=== PATIENT | female | born 1945 | race Caucasian/White ===

== ENCOUNTER 2021-06-12 23:41 | Inpatient (IN) | payer MEDICARE ==
[2021-06-12] MEDS ORDERED: ACETAMINOPHEN TAB 325 MG TAB PO STA (23:52)
[2021-06-13 00:24] LABS: Anisocytosis Slight; Basophils % (A) 0 %; Eosinophils # (A) 0.1 k/uL (0-0.7); Eosinophils % (A) 1 %; HCT 33.6 % (34.0-46.0); HGB 10.9 gm/dL (11.4-16.0); Lymphocytes # (A) 0.4 k/uL (1.0-4.8); Lymphocytes % (A) 4 %; MCH 30.4 pg (25.0-35.0); MCHC 32.3 g/dL (31.0-37.0); MCV 94.1 fL (80.0-100.0); Mean Platelet Volume 8.3; Monocytes # (A) 0.4 k/uL (0-1.0); Monocytes % (A) 3 %; Neutrophils # (A) 11.5 k/uL (1.3-7.7); Neutrophils % (A) 92 %; Platelet Count 181 k/uL (150-450); RBC 3.57 m/uL (3.80-5.40); RDW 16.6 % (11.5-15.5); WBC 12.5 k/uL (3.8-10.6)
[2021-06-13 00:27] LABS: Albumin 2.5 g/dL (3.5-5.0); Calcium 8.4 mg/dL (8.4-10.2); Total Bilirubin 0.4 mg/dL (0.2-1.3); Total Protein 5.4 g/dL (6.3-8.2)
[2021-06-13 00:31] LABS: INR 4.2 (<1.2); Partial Thromboplastin Time 31.4 sec (22.0-30.0); Prothrombin Time 40.7 sec (9.0-12.0)
--- NOTE | 2021-06-13 00:31 | XR ---
EXAMINATION TYPE: XR chest 1V portable DATE OF EXAM: 06/13/2021 COMPARISON: NONE HISTORY: Fever TECHNIQUE: Single view FINDINGS: There is coarse interstitial density in both lungs. There is no pleural effusion. Heart is borderline enlarged. Bony thorax is intact. IMPRESSION: Pulmonary interstitial infiltrates could relate to pulmonary fibrosis. Recommend comparis on with an old exam. No heart failure seen. Acute interstitial pneumonia not excluded.
[2021-06-13 01:47] LABS: Appearance,Urine Clear (Clear); Bacteria,Urine Rare /hpf; Bilirubin,Urine Negative (Negative); Blood,Urine Negative (Negative); Color,Urine Yellow; Glucose,Urine (UA) Negative (Negative); Hyaline Casts,Urine 12 /lpf (0-2); Ketones,Urine Negative (Negative); Leukocyte Esterase,Urine Trace (Negative); Mucus,Urine Occasional /hpf; Nitrite,Urine Negative (Negative); PH, Urine 5.5 (5.0-8.0); Protein,Urine Trace (Negative); RBC,Urine 3 /hpf (0-5); Squamous Epithelial Cell,Urine 1 /hpf (0-4); Urobilinogen,Urine <2.0 mg/dL (<2.0); WBC,Urine 4 /hpf (0-5)
[2021-06-13] MEDS ORDERED: SODIUM CHLORIDE 0.9% 500 ML 500 ML IV STA (03:14)
[2021-06-13] MEDS ORDERED: SODIUM CHLORIDE 0.9% 1,000 ML IV STA (03:14)
[2021-06-13] MEDS ORDERED: SODIUM CHLORIDE 0.9% 1,000 ML IV ONE (03:14)
--- NOTE | 2021-06-13 04:44 | ED ---
Altered Mental Status HPI - General Chief Complaint: Altered Mental Status Stated Complaint: Altered Mental Status Time Seen by Provider: 06/12/21 23:45 Source: EMS Mode of arrival: EMS Limitations: altered mental status - History of Present Illness Initial Comments: This patient is a 75-year-old woman who was sent from retirement to be evaluated for reportedly having altered mental status. I was reported that the patient was confused and disoriented. She was also reportedly appearing to be short of breath at the retirement. She reportedly had been diagnosed with codeine 19 infection last month. Patient reportedly had decreased oxygen satu rations and was borderline hypotensive prior to being transferred to the department here. The patient denies chest pain. MD Complaint: altered mental status -: hour(s) Consistency of Symptoms: unknown Associated Symptoms: shortness of breath - Related Data Home Medications Medication Instructions Recorded Confirmed Acetaminophen [Tylenol Arthritis] 650 mg PO Q6H PRN 06/13/21 06/13/21 Aspirin 81 mg PO DAILY 06/13/21 06/13/21 Atorvastatin [Lipitor] 20 mg PO HS 06/13/21 06/13/21 Calcium Carb-Vit D 500Mg-5Mcg 1 tab PO DAILY 06/13/21 06/13/21 [Oscal 500+D 5 Mcg (200 Iu)] Cyanocobalamin (Vitamin B-12) 1,000 mcg PO DAILY 06/13/21 06/13/21 [Vitamin B-12] Ferrous Sulfate [Iron (65 MG 325 mg PO DAILY 06/13/21 06/13/21 Elemental)] Folic Acid 1 mg PO DAILY 06/13/21 06/13/21 Levothyroxine Sodium [Synthroid] 50 mcg PO DAILY@0600 06/13/21 06/13/21 Lisinopril [Zestril] 10 mg PO DAILY 06/13/21 06/13/21 Miconazole 2% Cream [Monistat-Derm] 1 applic TOPICAL BID 06/13/21 06/13/21 Polyethylene Glycol 3350 [Miralax] 17 gm PO DAILY 06/13/21 06/13/21 metHOTREXate sodium [Methotrexate] 2.5 mg PO FR 06/13/21 06/13/21 Previous Rx's Medication Instructions Recorded Cefuroxime Axetil [Ceftin] 500 mg PO BID #10 tab 06/14/21 Diclofenac Sodium Gel [Voltaren 2 gm TOPICAL QID gm 06/14/21 Gel] Gabapentin [Neurontin] 400 mg PO TID@0600,1400,2200 #12 06/14/21 cap Naproxen [Naprosyn] 250 mg PO TID #21 tab 06/14/21 Warfarin Sodium 3 mg PO HS #0 06/14/21 Allergies Allergy/AdvReac Type Severity Reaction Status Date / Time morphine AdvReac Vomiting Verified 06/13/21 06:49 Review of Systems ROS Statement: Those systems with pertinent positive or pertinent negative responses have been documented in the HPI. ROS Other: All systems not noted in ROS Statement are negative. Limitations: ROS unobtainable due to patients medical condition Respiratory: Reports: cough, dyspnea Cardiovascular: Denies: chest pain Gastrointestinal: Denies: abdominal pain Neurological: Denies: headache Past Medical History Past Medical History: Atrial Fibrillation, Blood Disorder, GERD/Reflux, Hypertension, Rheumatoid Arthritis (RA), Syncope, Thyroid Disorder Additional Past Medical History / Comment(s): hypothyroid, anemia History of Any Multi-Drug Resistant Organisms: ESBL Date of last positivie culture/infection: unk Past Psychological History: No Psychological Hx Reported Smoking Status: Never smoker Past Alcohol Use History: None Reported Past Drug Use History: None Reported General Exam Limitations: no limitations General appearance: alert, in no apparent distress Head exam: Present: atraumatic, normocephalic Eye exam: Present: normal appearance, PERRL, EOMI. Absent: scleral icterus, conjunctival injection ENT exam: Present: mucous membranes dry Neck exam: Present: normal inspection, full ROM. Absent: tenderness Respiratory exam: Present: rhonchi. Absent: respiratory distress, wheezes, rales, stridor, accessory muscle use, decreased breath sounds, prolonged expiratory Cardiovascular Exam: Present: regular rate, normal rhythm, systolic murmur. Absent: diastolic murmur, rubs, gallop GI/Abdominal exam: Present: soft. Absent: distended, tenderness, guarding, rebound, rigid, mass Extremities exam: Present: normal inspection, normal capillary refill. Absent: pedal edema, calf tenderness Back exam: Present: normal inspection Neurological exam: Present: alert, CN II-XII intact. Absent: oriented X3 (Patient is oriented to person and recognizes she is at a hospital, cannot state the date.), motor sensory deficit Skin exam: Present: warm, dry, intact, normal color. Absent: rash Course Vital Signs 06/12/21 06/13/21 06/13/21 23:42 00:15 01:00 Temperature 100.6 F H Pulse Rate 76 71 66 Respiratory 20 20 20 Rate Blood Pressure 107/55 102/53 80/46 O2 Sat by Pulse 94 L 98 98 Oximetry 06/13/21 06/13/21 06/13/21 02:30 04:00 06:15 Temperature 99.6 F Pulse Rate 60 66 64 Respiratory 18 18 16 Rate Blood Pressure 90/46 99/46 102/58 O2 Sat by Pulse 98 98 97 Oximetry 06/13/21 06/13/21 08:37 08:55 Temperature 98.6 F Pulse Rate 60 Respiratory 16 Rate Blood Pressure 100/54 O2 Sat by Pulse 100 Oximetry Procedures - Sepsis Sepsis Focused Exam #2 Sepsis Focused Exam Date: 06/13/21 Sepsis Focused Exam Time: 04:30 Sepsis Focused Exam Complete: Yes Vital Signs & RN Notes Reviewed: Yes Capillary Refill: < 2 Seconds: Fingers Peripheral Pulses: Normal: Radial (R) Skin Color: Normal for Patient Respiratory Exam: rhonchi Cardiovascular Exam: regular rate, normal rhythm, normal heart sounds Medical Decision Making - Medical Decision Making Patient 75-year-old woman sent from retirement for altered mental status. Patient does have sepsis criteria here. She is started on antibiotics and IV fluids. Patient hypotensive on arrival is responding to IV fluids here. She does appear to be mildly delirious but otherwise stable. We'll admit pending culture results for further fluids and antibiotics - Lab Data Result diagrams: 06/14/21 07:09 06/14/21 07:09 Lab Results 06/12/21 06/12/21 06/12/21 Range/Units 23:56 23:56 23:56 WBC 12.5 H (3.8-10.6) k/uL RBC 3.57 L (3.80-5.40) m/uL Hgb 10.9 L (11.4-16.0) gm/dL Hct 33.6 L (34.0-46.0) % MCV 94.1 (80.0-100.0) fL MCH 30.4 (25.0-35.0) pg MCHC 32.3 (31.0-37.0) g/dL RDW 16.6 H (11.5-15.5) % Plt Count 181 (150-450) k/uL MPV 8.3 Neutrophils % 92 % Lymphocytes % 4 % Monocytes % 3 % Eosinophils % 1 % Basophils % 0 % Neutrophils # 11.5 H (1.3-7.7) k/uL Lymphocytes # 0.4 L (1.0-4.8) k/uL Monocytes # 0.4 (0-1.0) k/uL Eosinophils # 0.1 (0-0.7) k/uL Basophils # 0.0 (0-0.2) k/uL Anisocytosis Slight PT 40.7 H (9.0-12.0) sec INR 4.2 H (<1.2) APTT 31.4 H (22.0-30.0) sec Sodium (137-145) mmol/L Potassium (3.5-5.1) mmol/L Chloride (98-107) mmol/L Carbon Dioxide (22-30) mmol/L Anion Gap mmol/L BUN (7-17) mg/dL Creatinine (0.52-1.04) mg/dL Est GFR (CKD-EPI)AfAm (>60 ml/min/1.73 sqM) Est GFR (CKD-EPI)NonAf (>60 ml/min/1.73 sqM) Glucose (74-99) mg/dL Plasma Lactic Acid Sterling (0.7-2.0) mmol/L Calcium (8.4-10.2) mg/dL Total Bilirubin (0.2-1.3) mg/dL AST (14-36) U/L ALT (4-34) U/L Alkaline Phosphatase (38-126) U/L Troponin I (0.000-0.034) ng/mL Total Protein (6.3-8.2) g/dL Albumin (3.5-5.0) g/dL Urine Color Yellow Urine Appearance Clear (Clear) Urine pH 5.5 (5.0-8.0) Ur Specific Dale 1.020 (1.001-1.035) Urine Protein Trace H (Negative) Urine Glucose (UA) Negative (Negative) Urine Ketones Negative (Negative) Urine Blood Negative (Negative) Urine Nitrite Negative (Negative) Urine Bilirubin Negative (Negative) Urine Urobilinogen <2.0 (<2.0) mg/dL Ur Leukocyte Esterase Trace H (Negative) Urine RBC 3 (0-5) /hpf Urine WBC 4 (0-5) /hpf Ur Squamous Epith Cells 1 (0-4) /hpf Urine Bacteria Rare H (None) /hpf Hyaline Casts 12 H (0-2) /lpf Urine Mucus Occasional H (None) /hpf Coronavirus (PCR) (Not Detectd) 06/12/21 06/12/21 06/12/21 Range/Units 23:56 23:56 23:56 WBC (3.8-10.6) k/uL RBC (3.80-5.40) m/uL Hgb (11.4-16.0) gm/dL Hct (34.0-46.0) % MCV (80.0-100.0) fL MCH (25.0-35.0) pg MCHC (31.0-37.0) g/dL RDW (11.5-15.5) % Plt Count (150-450) k/uL MPV Neutrophils % % Lymphocytes % % Monocytes % % Eosinophils % % Basophils % % Neutrophils # (1.3-7.7) k/uL Lymphocytes # (1.0-4.8) k/uL Monocytes # (0-1.0) k/uL Eosinophils # (0-0.7) k/uL Basophils # (0-0.2) k/uL Anisocytosis PT (9.0-12.0) sec INR (<1.2) APTT (22.0-30.0) sec Sodium 136 L (137-145) mmol/L Potassium 4.0 (3.5-5.1) mmol/L Chloride 107 (98-107) mmol/L Carbon Dioxide 23 (22-30) mmol/L Anion Gap 6 mmol/L BUN 32 H (7-17) mg/dL Creatinine 1.21 H (0.52-1.04) mg/dL Est GFR (CKD-EPI)AfAm 52 (>60 ml/min/1.73 sqM) Est GFR (CKD-EPI)NonAf 45 (>60 ml/min/1.73 sqM) Glucose 121 H (74-99) mg/dL Plasma Lactic Acid Sterling 2.0 (0.7-2.0) mmol/L Calcium 8.4 (8.4-10.2) mg/dL Total Bilirubin 0.4 (0.2-1.3) mg/dL AST 35 (14-36) U/L ALT 18 (4-34) U/L Alkaline Phosphatase 65 (38-126) U/L Troponin I 0.037 H* (0.000-0.034) ng/mL Total Protein 5.4 L (6.3-8.2) g/dL Albumin 2.5 L (3.5-5.0) g/dL Urine Color Urine Appearance (Clear) Urine pH (5.0-8.0) Ur Specific Dale (1.001-1.035) Urine Protein (Negative) Urine Glucose (UA) (Negative) Urine Ketones (Negative) Urine Blood (Negative) Urine Nitrite (Negative) Urine Bilirubin (Negative) Urine Urobilinogen (<2.0) mg/dL Ur Leukocyte Esterase (Negative) Urine RBC (0-5) /hpf Urine WBC (0-5) /hpf Ur Squamous Epith Cells (0-4) /hpf Urine Bacteria (None) /hpf Hyaline Casts (0-2) /lpf Urine Mucus (None) /hpf Coronavirus (PCR) (Not Detectd) 06/13/21 Range/Units 06:44 WBC (3.8-10.6) k/uL RBC (3.80-5.40) m/uL Hgb (11.4-16.0) gm/dL Hct (34.0-46.0) % MCV (80.0-100.0) fL MCH (25.0-35.0) pg MCHC (31.0-37.0) g/dL RDW (11.5-15.5) % Plt Count (150-450) k/uL MPV Neutrophils % % Lymphocytes % % Monocytes % % Eosinophils % % Basophils % % Neutrophils # (1.3-7.7) k/uL Lymphocytes # (1.0-4.8) k/uL Monocytes # (0-1.0) k/uL Eosinophils # (0-0.7) k/uL Basophils # (0-0.2) k/uL Anisocytosis PT (9.0-12.0) sec INR (<1.2) APTT (22.0-30.0) sec Sodium (137-145) mmol/L Potassium (3.5-5.1) mmol/L Chloride (98-107) mmol/L Carbon Dioxide (22-30) mmol/L Anion Gap mmol/L BUN (7-17) mg/dL Creatinine (0.52-1.04) mg/dL Est GFR (CKD-EPI)AfAm (>60 ml/min/1.73 sqM) Est GFR (CKD-EPI)NonAf (>60 ml/min/1.73 sqM) Glucose (74-99) mg/dL Plasma Lactic Acid Sterling (0.7-2.0) mmol/L Calcium (8.4-10.2) mg/dL Total Bilirubin (0.2-1.3) mg/dL AST (14-36) U/L ALT (4-34) U/L Alkaline Phosphatase (38-126) U/L Troponin I (0.000-0.034) ng/mL Total Protein (6.3-8.2) g/dL Albumin (3.5-5.0) g/dL Urine Color Urine Appearance (Clear) Urine pH (5.0-8.0) Ur Specific Dale (1.001-1.035) Urine Protein (Negative) Urine Glucose (UA) (Negative) Urine Ketones (Negative) Urine Blood (Negative) Urine Nitrite (Negative) Urine Bilirubin (Negative) Urine Urobilinogen (<2.0) mg/dL Ur Leukocyte Esterase (Negative) Urine RBC (0-5) /hpf Urine WBC (0-5) /hpf Ur Squamous Epith Cells (0-4) /hpf Urine Bacteria (None) /hpf Hyaline Casts (0-2) /lpf Urine Mucus (None) /hpf Coronavirus (PCR) Not Detected (Not Detectd) - EKG Data -: EKG Interpreted by Pr EKG shows normal: sinus rhythm (With PVCs, rate 80 bpm), axis (Normal), intervals (Normal), QRS complexes (Possible old anterior infarct.) Interpretation: nonspecific ST-T wave changes (Possible lateral ischemia.) Critical Care Time Critical Care Time: Yes (30 minutes) Disposition Clinical Impression: Sepsis, Altered mental status Disposition: ADMITTED IP TO THIS [facility] Is patient prescribed a controlled substance at d/c from ED?: No
[2021-06-13] MEDS ORDERED: HYDROmorphone 0.5 MG/0.5 ML SYRINGE IVP PRN (05:40)
[2021-06-13] MEDS ORDERED: ACETAMINOPHEN TAB 325 MG TAB PO PRN (07:16)
[2021-06-13] MEDS: FERROUS SULFATE 325 MG TAB PO SCH (08:36)
[2021-06-13] MEDS: FOLIC ACID 1 MG TAB PO SCH (08:37)
[2021-06-13] MEDS: ASPIRIN 81 MG PO SCH (08:37)
[2021-06-13] MEDS: GABAPENTIN 400 MG CAP PO SCH ×4 (08:47→23:10)
[2021-06-13] MEDS ORDERED: lisinopriL 10 MG TAB PO SCH (09:00)
[2021-06-13] MEDS ORDERED: FAMOTIDINE 20 MG/2 ML VIAL IV SCH (09:00)
[2021-06-13] MEDS: Acetaminophen-Codeine 300-30mg TAB PO PRN ×2 (11:16→18:24)
[2021-06-13 11:21] LABS: Anisocytosis Slight; Basophils % (A) 0 %; Eosinophils % (A) 0 %; HGB 10.3 gm/dL (11.4-16.0); Lymphocytes # (A) 0.8 k/uL (1.0-4.8); Lymphocytes % (A) 7 %; MCH 31.7 pg (25.0-35.0); MCHC 33.3 g/dL (31.0-37.0); MCV 95.1 fL (80.0-100.0); Mean Platelet Volume 8.9; Monocytes # (A) 0.4 k/uL (0-1.0); Monocytes % (A) 4 %; Neutrophils # (A) 10.1 k/uL (1.3-7.7); Neutrophils % (A) 88 %; Platelet Count 178 k/uL (150-450); RBC 3.26 m/uL (3.80-5.40); WBC 11.5 k/uL (3.8-10.6)
[2021-06-13 11:29] LABS: INR 4.8 (<1.2); Prothrombin Time 45.9 sec (9.0-12.0)
[2021-06-13 11:30] LABS: Calcium 8.2 mg/dL (8.4-10.2); Potassium 4.2 mmol/L (3.5-5.1)
--- NOTE | 2021-06-13 14:10 | P.CNNES ---
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 Some of the history is obtained from medical records and patient's nurse. Neurology is consulted for possible stroke. Per the patient's nurse she spoke with the patient's son stated that the patient had a stroke about a month ago according to the patient that was the a few month ago and affected the right side. She had workup over at [facility] and that it is belie lexii that was Donald Aparicio. The patient presented to our facility for short of breath at the skilled nursing facility and had decreased oxygen saturation and had a borderline hypotensive prior to being transferred to our emergency department per the ED team. Patient complained of chest pain to the emergency department. Upon seeing the patient she denies of any new weakness, numbness, any visual disturbance or difficulty swallowing. She stated that she's having diffuse pain throughout her body and she said that she has history of rheumatoid arthritis and that with flareup of her rheumatoid this happens. She said that she had rheumatoid arthritis for years. According to the patient's nurse she stated that she did not notice any confusion that the patient had or any new weakness. The nurse stated that the from her examination also the exam was limited because of the pain but the patient was a response to her appropriately. Home medication consist of Coumadin, methotrexate, aspirin 81 mg, Lipitor 20 mg a daily at bedtime, folic acid 1 mg daily, Synthroid, lisinopril, vitamin B12 at thousand micrograms daily, gabapentin 400 mg 1 tablet 3 times a day, Some of the work-up: Initial vital signs is blood pressure of 107/55, heart rate of 100.6 Fahrenheit oral, respiratory of 76, respiratory of 20, pulse ox 94% on room air. During this hospital stay the patient's blood pressure was as low as 80/46 Initial white blood cell is 12.5 thousand, mostly neutrophilic. Sodium is 136, creatinine is 1.21 and a repeat is 1.18, serum glucose is 121, AST of 35, ALT of 18, troponin is 0.037 and the repeat his 0.038. Chest x-rays reported as pulmonary and interstitial infiltrates that could relate to pulmonary fibrosis. Recommend comparison with an old exam. No heart failure seen. Acute interstitial pneumonia not excluded that. Urinalysis is the leukocyte esterase was trace and the urine bacteria was rare. Coagulation study: PT L5 40.7, INR is 4.2 and PTT of 31.4. The repeat INR is 4.8 Luo virus is nondetected Review of Systems Review of system: The 12 point system was reviewed and apparent positive and negative per HPI. Past Medical History Past Medical History: Atrial Fibrillation, Asthma, Blood Disorder, CVA/TIA, GERD/Reflux, Hypertension, Rheumatoid Arthritis (RA), Syncope, Thyroid Disorder Additional Past Medical History / Comment(s): hypothyroid, anemia, at [facility] had a "negative positive" covid test per patient, recent CVA with right side weakness History of Any Multi-Drug Resistant Organisms: ESBL Date of last positivie culture/infection: UNKOWN MDRO Source:: UNKOWN Past Surgical History: Hysterectomy Past Psychological History: No Psychological Hx Reported Smoking Status: Former smoker Past Alcohol Use History: None Reported Past Drug Use History: None Reported Medications and Allergies Home Medications Medication Instructions Recorded Confirmed Type Acetaminophen [Tylenol Arthritis] 650 mg PO Q6H PRN 06/13/21 06/13/21 History Aspirin 81 mg PO DAILY 06/13/21 06/13/21 History Atorvastatin [Lipitor] 20 mg PO HS 06/13/21 06/13/21 History Calcium Carb-Vit D 500Mg-5Mcg 1 tab PO DAILY 06/13/21 06/13/21 History [Oscal 500+D 5 Mcg (200 Iu)] Cyanocobalamin (Vitamin B-12) 1,000 mcg PO DAILY 06/13/21 06/13/21 History [Vitamin B-12] Docusate [Colace] 100 mg PO HS@199906/13/21 06/13/21 History Ferrous Sulfate [Feosol] 325 mg PO DAILY 06/13/21 06/13/21 History Folic Acid 1 mg PO DAILY 06/13/21 06/13/21 History Gabapentin [Neurontin] 400 mg PO TID@0600,1400,2200 06/13/21 06/13/21 History Levothyroxine Sodium [Synthroid] 50 mcg PO DAILY@0600 06/13/21 06/13/21 History Lisinopril [Zestril] 10 mg PO DAILY 06/13/21 06/13/21 History Miconazole 2% Cream [Monistat-Derm] 1 applic TOPICAL BID 06/13/21 06/13/21 History Polyethylene Glycol 3350 [Miralax] 17 gm PO DAILY 06/13/21 06/13/21 History Warfarin Sodium 6 mg PO HS 06/13/21 06/13/21 History metHOTREXate sodium [Methotrexate] 2.5 mg PO FR 06/13/21 06/13/21 History Allergies Allergy/AdvReac Type Severity Reaction Status Date / Time morphine AdvReac Vomiting Verified 06/13/21 06:49 Physical Examination - Vital Signs Vital Signs: Vital Signs Temp Pulse Pulse Resp BP BP Pulse Ox 06/13/21 12:00 60 87/52 06/13/21 11:10 56 L 18 109/75 97 06/13/21 10:30 55 L 79/45 06/13/21 09:35 97.9 F 60 18 88/47 98 06/13/21 08:55 98.6 F 06/13/21 08:37 60 16 100/54 100 06/13/21 06:15 64 16 102/58 97 06/13/21 04:00 66 18 99/46 98 06/13/21 02:30 99.6 F 60 18 90/46 98 06/13/21 01:00 66 20 80/46 98 06/13/21 00:15 71 20 102/53 98 06/12/21 23:42 100.6 F H 76 20 107/55 94 L Intake and Output 06/12/21 06/13/21 06/13/21 22:59 06:59 14:59 Intake Total 118 Balance 118 Intake: Oral 118 Other: Weight 64.864 kg 64.864 kg GENERAL: The patient is lying in bed and is in moderate to severe acute distres s. She had generalized pain throughout the body. CHEST: The heart rate is regular rate rhythm. No murmurs to auscultation. LUNG: Clear to auscultation bilaterally no wheezing noted throughout. Not labored breathing. ABDOMEN/GI: Bowel sounds present in all 4 quadrants. No tenderness to palpation throughout. NEUROLOGICAL: Higher mental function: The patient is awake, alert, oriented to self, place and time. Patient is following commands. No aphasia and no neglect. Cranial nerves: The pupils are round, equal and reactive to light. Visual piña are full to confrontation throughout. Extraocular movement is intact no nystagmus is noted. Facial sensation is normal to touch throughout. The facial strength is normal throughout. Hearing is mildly to moderately decreased bilaterally to hand rub. Tongue is midline and moved [id number] without any difficulty. No dysarthria is noted. Motor: Gait is deferred because of her generalized pain. The strength is limited in assessing because of her pain. She is able to bend her elbows bilaterally at bed and squeeze hand symetrically without noticeable focality as well had antigravity of both ankles. Normal bulk. Could not assess tone because of her pain. Cerebellum: Could not assess because of her pain. Sensation: Sensation is normal to touch throughout. Reflexes (right/left): Refused because of her pain. Plantars are mute bilaterally. Results - Laboratory Findings CBC and BMP: 06/13/21 10:06/13/21 10:00 Abnormal Lab Findings: Abnormal Labs 06/12/21 06/12/21 06/12/21 23:56 23:56 23:56 WBC 12.5 H RBC 3.57 L Hgb 10.9 L Hct 33.6 L RDW 16.6 H Neutrophils # 11.5 H Lymphocytes # 0.4 L PT 40.7 H INR 4.2 H APTT 31.4 H Sodium Chloride Carbon Dioxide BUN Creatinine Glucose Calcium Troponin I Total Protein Albumin Urine Protein Trace H Ur Leukocyte Esterase Trace H Urine Bacteria Rare H Hyaline Casts 12 H Urine Mucus Occasional H 06/12/21 06/12/21 06/13/21 23:56 23:56 07:30 WBC RBC Hgb Hct RDW Neutrophils # Lymphocytes # PT INR APTT Sodium 136 L Chloride Carbon Dioxide BUN 32 H Creatinine 1.21 H Glucose 121 H Calcium Troponin I 0.037 H* 0.038 H* Total Protein 5.4 L Albumin 2.5 L Urine Protein Ur Leukocyte Esterase Urine Bacteria Hyaline Casts Urine Mucus 06/13/21 06/13/21 06/13/21 10:00 10:00 10:00 WBC 11.5 H RBC 3.26 L Hgb 10.3 L Hct 31.0 L RDW 17.0 H Neutrophils # 10.1 H Lymphocytes # 0.8 L PT 45.9 H INR 4.8 H APTT Sodium Chloride 111 H Carbon Dioxide 21 L BUN 29 H Creatinine 1.18 H Glucose 132 H Calcium 8.2 L Troponin I Total Protein Albumin Urine Protein Ur Leukocyte Esterase Urine Bacteria Hyaline Casts Urine Mucus Assessment and Plan Assessment: * Transient altered mental status likely due to septic encephalopathy of unknown but possibly seems to be due to possible pneumonia (low grade fever, leukocytosis, hypotensive, hypoxia and possible changes on CXR) and small component of metabolic encephalopathy--mentation improved * Moderate to severe Generalized pain due to her Rheumatoid Arthritis flare-up. * History of stroke with residual weakness over the right side in the past one to few months ago (she was at [facility] (possibly [facility]) for her stroke). * Possible pneumonia she presented with shortness of breath and hypoxia per the ED at the outside facility) * Kidney insufficiency that is trending down and not sure if patient has acute or chronic kidney insufficiency * Atrial fibrillation on Coumadin with supratherapeutic INR currently is 4.8. * History of COVID-19 Pneumonia * Hypothyroidism * Rheumatoid arthritis Plan: * CT of the head is ordered by the primary team for suspicion of stroke but she denies any new neurological problems and is complaining of generalized pain which seems due to Rheumatoid Arthritis. Exam is limited because of her diffuse pain. * From a neurological perspective , the INR goal to be between 2-3 but will defer that management to the primary team. She is also in addition she is on aspirin 81 at her home dose. Continue Lipitor 20 mg daily at bedtime. * She is currently on folic acid 1 mg, vitamin B12 1000 g daily. * An EEG is not warranted at this time. Her transient episode of confusion seems more septic encephalopathy. * Continue neuro checks * 2-D echo was ordered by the primary team. * Patient is currently on ceftriaxone and we'll defer the antibiotic management to the primary team. * Please avoid any hypotensive episode and we'll defer the management to the primary team. * We'll defer the rheumatoid arthritis management to the primary team. * We'll defer the rest of the medical management to the primary team. * Upon discharge the patient needs to follow-up with a neurologist within 2-3 weeks as an outpatient. The plan is discussed with the patient and her nurse. Thank you for the consultation. Nicolas Stearns M.D. Neuro-hospitalist Time with Patient: Greater than 30
--- NOTE | 2021-06-13 14:42 | CT ---
EXAMINATION TYPE: CT brain wo con DATE OF EXAM: 06/13/2021 COMPARISON: None HISTORY: Complains of severe body pain. CT DLP: 1188.4 mGycm Automated exposure control for dose reduction was used. FINDINGS: Atherosclerotic change in the visualized vasculature. Moderate generalized degenerative change with a reas of abnormal attenuation in the white matter which are nonspecific but most typical of remote whi te matter ischemia. Area of abnormal density in the basal ganglia on the right suggestive of remote i nfarct. Calvarium intact. Craniocervical junction maintained. Sella turcica has a normal appearance. No midli ne shift or mass effect. No acute hemorrhage. IMPRESSION: DEGENERATIVE AND NONSPECIFIC WHITE MATTER CHANGES MOST TYPICAL REMOTE ISCHEMIA. CORRELATE WITH MRI CLINICALLY WARRANTED.
[2021-06-13] MEDS: SODIUM CHLORIDE 0.9% 1,000 ML IV SCH (14:51)
--- NOTE | 2021-06-13 17:58 | P.HPIM ---
History of Present Illness H&P Date: 06/13/21 Chief Complaint: Acute confusion This is a pleasant [address] Karthikeyan Armendariz. Chronic stable medical conditions include GERD, hypertension, rheumatoid arthritis, hypothyroid, recent stroke with some right-sided weakness. Patient's currently at [facility]. She was noted yesterday be a bit confused she was sent in here. Patient states he feels weak all over. Also joints are hurting. She says she is weak on the right side but he was more weak yesterday. No change in his speech. She is currently not working. This morning she knows where she is. Denies any respiratory or urinary symptoms. I did order a computed tomography scan of the brain and neuro consult because of the unclear history. She also states it's painful to move her limbs. Per the EMS patient was noted to be weak and lethargic and confused. Hypotensive. Review of systems: GEN.: Tired EYES: None HEENT: None NECK: None RESPIRATORY: None CARDIOVASCULAR: None GASTROINTESTINAL: None GENITOURINARY: None MUSCULOSKELETAL: Joint pains LYMPHATICS: None HEMATOLOGICAL: None PSYCHIATRY: None NEUROLOGICAL: Some right-sided weakness from recent stroke Past medical history to include: Atrial fibrillation, asthma, stroke, GERD, hypertension, rheumatoid arthritis, hypothyroid, anemia, recent stroke with right-sided weakness Social history: Currently for rehab at [facility], the smoke in the past. For about 30 years. Stopped over 20 years ago. Family history: Reviewed, noncontributory to presentation Physical examination: VITAL SIGNS: 100.6, 76, 20, 107/55, 94% room air GENERAL: BMI 25.3, reclining in bed, awake, tired. EYES: Pupils equal. Conjunctiva normal. HEENT: External appearance of nose and ears normal, oral cavity grossly normal. NECK: JVD not raised; masses not palpable. HEART: First and second heart sounds are normal; no edema. LUNGS: Respiratory rate normal; clear to auscultation. ABDOMEN: Soft, nontender, liver spleen not palpable, no masses palpable. PSYCH: Patient knows that she is in the hospital, knows the month and the year. Able to answer questions. MUSCULAR skeletal: Patient seems to have pain in different joints especially the upper extremity. Even folding her arms.l. NEUROLOGICAL: [Cranial nerves grossly intact; no facial asymmetry, some decrease in part on the right side. Unable to assess because of pain. LYMPHATICS: No lymph nodes palpable in the axilla and neck INVESTIGATIONS, reviewed in the clinical context: White count 12.5 hemoglobin 10.9 platelets 189 INR 4.2 potassium 4 when necessary 32 creatinine 1.21 Troponin I 0.037, 0.038 UA positive for trace leukoesterase, trace bacteria Coronavirus [PCR]: Not detected EKG tracing personally reviewed by me-normal sinus rhythm, PVC, some nonspecific T-wave changes Chest x-ray film personally reviewed by me-infiltrates in the upper zones. Bilateral coarse Assessment and plan: -Possible bilateral pneumonia. Cannot rule out chronic findings. Start IV ceftriaxone every 12. Check pro-calcitonin.: From gram-negative organism. -Acute delirium from pneumonia on presentation. Slowly improving -Patient does state she was more weak on the right side. Put on symptoms of fluctuating. We will do a computed tomography scan of the brain to make sure there is nothing acute. Consult neurology. -Paroxysmal atrial fibrillation, currently in sinus rhythm Coumadin -Hyperlipidemia Lipitor 20 mg daily at bedtime -Hypothyroid Synthroid 50 g daily -Essential hypertension Lisinopril 10 mg daily -Chronic arthralgia. Diagnosis unclear. Use Voltaren gel -Chronic medical debility. Patient has been nonambulatory of recent. Fall precautions -Troponin leak due to hemodynamic a mismatch. No clinical evidence of ACS IV ceftriaxone. Procalcitonin. Review home medications. Computed tomography scan brain. Neurology consult. 2-D echo. IV fluids. Repeat labs. Given the complexity and severity of patient's condition expect the patient to be in the hospital at least for 2 overnights Past Medical History Past Medical History: Atrial Fibrillation, Blood Disorder, GERD/Reflux, Hypertension, Rheumatoid Arthritis (RA), Syncope, Thyroid Disorder Additional Past Medical History / Comment(s): hypothyroid, anemia History of Any Multi-Drug Resistant Organisms: ESBL Date of last positivie culture/infection: unk Past Psychological History: No Psychological Hx Reported Smoking Status: Never smoker Past Alcohol Use History: None Reported Past Drug Use History: None Reported Medications and Allergies Home Medications Medication Instructions Recorded Confirmed Type Acetaminophen [Tylenol Arthritis] 650 mg PO Q6H PRN 06/13/21 06/13/21 History Aspirin 81 mg PO DAILY 06/13/21 06/13/21 History Atorvastatin [Lipitor] 20 mg PO HS 06/13/21 06/13/21 History Calcium Carb-Vit D 500Mg-5Mcg 1 tab PO DAILY 06/13/21 06/13/21 History [Oscal 500+D 5 Mcg (200 Iu)] Cyanocobalamin (Vitamin B-12) 1,000 mcg PO DAILY 06/13/21 06/13/21 History [Vitamin B-12] Docusate [Colace] 100 mg PO HS@199906/13/21 06/13/21 History Ferrous Sulfate [Feosol] 325 mg PO DAILY 06/13/21 06/13/21 History Folic Acid 1 mg PO DAILY 06/13/21 06/13/21 History Gabapentin [Neurontin] 400 mg PO TID@0600,1400,2200 06/13/21 06/13/21 History Levothyroxine Sodium [Synthroid] 50 mcg PO DAILY@0600 06/13/21 06/13/21 History Lisinopril [Zestril] 10 mg PO DAILY 06/13/21 06/13/21 History Miconazole 2% Cream [Monistat-Derm] 1 applic TOPICAL BID 06/13/21 06/13/21 History Polyethylene Glycol 3350 [Miralax] 17 gm PO DAILY 06/13/21 06/13/21 History Warfarin Sodium 6 mg PO HS 06/13/21 06/13/21 History metHOTREXate sodium [Methotrexate] 2.5 mg PO FR 06/13/21 06/13/21 History Allergies Allergy/AdvReac Type Severity Reaction Status Date / Time morphine AdvReac Vomiting Verified 06/13/21 06:49 Physical Exam Vitals: Vital Signs Temp Pulse Pulse Resp BP BP Pulse Ox 06/13/21 09:35 97.9 F 60 18 88/47 98 06/13/21 08:55 98.6 F 06/13/21 08:37 60 16 100/54 100 06/13/21 06:15 64 16 102/58 97 06/13/21 04:00 66 18 99/46 98 06/13/21 02:30 99.6 F 60 18 90/46 98 06/13/21 01:00 66 20 80/46 98 06/13/21 00:15 71 20 102/53 98 06/12/21 23:42 100.6 F H 76 20 107/55 94 L Intake and Output 06/12/21 06/13/21 06/13/21 22:59 06:59 14:59 Intake Total 118 Balance 118 Intake: Oral 118 Other: Weight 64.864 kg Results CBC & Chem 7: 06/13/21 10:00 06/13/21 10:00 Labs: Abnormal Lab Results - Last 24 Hours (Table) 06/12/21 06/12/21 06/12/21 Range/Units 23:56 23:56 23:56 WBC 12.5 H (3.8-10.6) k/uL RBC 3.57 L (3.80-5.40) m/uL Hgb 10.9 L (11.4-16.0) gm/dL Hct 33.6 L (34.0-46.0) % RDW 16.6 H (11.5-15.5) % Neutrophils # 11.5 H (1.3-7.7) k/uL Lymphocytes # 0.4 L (1.0-4.8) k/uL PT 40.7 H (9.0-12.0) sec INR 4.2 H (<1.2) APTT 31.4 H (22.0-30.0) sec Sodium (137-145) mmol/L BUN (7-17) mg/dL Creatinine (0.52-1.04) mg/dL Glucose (74-99) mg/dL Troponin I (0.000-0.034) ng/mL Total Protein (6.3-8.2) g/dL Albumin (3.5-5.0) g/dL Urine Protein Trace H (Negative) Ur Leukocyte Esterase Trace H (Negative) Urine Bacteria Rare H (None) /hpf Hyaline Casts 12 H (0-2) /lpf Urine Mucus Occasional H (None) /hpf 06/12/21 06/12/21 06/13/21 Range/Units 23:56 23:56 07:30 WBC (3.8-10.6) k/uL RBC (3.80-5.40) m/uL Hgb (11.4-16.0) gm/dL Hct (34.0-46.0) % RDW (11.5-15.5) % Neutrophils # (1.3-7.7) k/uL Lymphocytes # (1.0-4.8) k/uL PT (9.0-12.0) sec INR (<1.2) APTT (22.0-30.0) sec Sodium 136 L (137-145) mmol/L BUN 32 H (7-17) mg/dL Creatinine 1.21 H (0.52-1.04) mg/dL Glucose 121 H (74-99) mg/dL Troponin I 0.037 H* 0.038 H* (0.000-0.034) ng/mL Total Protein 5.4 L (6.3-8.2) g/dL Albumin 2.5 L (3.5-5.0) g/dL Urine Protein (Negative) Ur Leukocyte Esterase (Negative) Urine Bacteria (None) /hpf Hyaline Casts (0-2) /lpf Urine Mucus (None) /hpf
[2021-06-13] MEDS: DICLOFENAC SODIUM GEL 100 GM TUBE TOPICAL SCH ×2 (18:23→20:35)
[2021-06-13] MEDS ORDERED: DOCUSATE 100 MG CAP PO SCH (20:00)
[2021-06-13] MEDS ORDERED: ATORVASTATIN 20 MG TAB PO SCH (21:00)
[2021-06-13] MEDS: MICONAZOLE NITRATE 2% CREAM 14 GM TUBE TOPICAL SCH (23:10)
[2021-06-14] MEDS: SODIUM CHLORIDE 0.9% 1,000 ML IV SCH ×2 (01:13→14:44)
[2021-06-14] MEDS: Acetaminophen-Codeine 300-30mg TAB PO PRN (03:56)
[2021-06-14] MEDS ORDERED: LEVOTHYROXINE 50 MCG TAB PO SCH (06:00)
[2021-06-14] MEDS: GABAPENTIN 400 MG CAP PO SCH ×2 (06:13→14:43)
[2021-06-14 08:00] LABS: Anisocytosis Slight; Basophils % (A) 1 %; Eosinophils # (A) 0.2 k/uL (0-0.7); Eosinophils % (A) 3 %; HCT 33.6 % (34.0-46.0); Hypochromasia Marked; Lymphocytes # (A) 0.9 k/uL (1.0-4.8); Lymphocytes % (A) 14 %; MCH 30.5 pg (25.0-35.0); MCHC 29.9 g/dL (31.0-37.0); Macrocytosis Moderate; Mean Platelet Volume 8.6; Monocytes # (A) 0.4 k/uL (0-1.0); Monocytes % (A) 6 %; Neutrophils # (A) 4.8 k/uL (1.3-7.7); Neutrophils % (A) 73 %; Platelet Count 162 k/uL (150-450); RDW 16.8 % (11.5-15.5); WBC 6.6 k/uL (3.8-10.6)
[2021-06-14 08:02] LABS: MCV 101.9 fL (80.0-100.0)
[2021-06-14 08:05] LABS: Calcium 8.7 mg/dL (8.4-10.2); Potassium 4.5 mmol/L (3.5-5.1)
[2021-06-14 08:07] LABS: Prothrombin Time 57.9 sec (9.0-12.0)
[2021-06-14] MEDS ORDERED: PHYTONADIONE ORAL 5 MG/5 ML ORAL.SYRG PO STA (08:47)
[2021-06-14 08:50] VITALS: PULSE 56; RESP 20
[2021-06-14] MEDS ORDERED: NAPROXEN 250 MG TAB PO SCH (09:00)
[2021-06-14] MEDS ORDERED: CYANOCOBALAMIN 500 MCG TAB PO SCH (09:00)
--- NOTE | 2021-06-14 09:00 | ECHOF ---
Referral Reason:pos troponin MEASUREMENTS -------- HEIGHT: 160.0 cm WEIGHT: 64.9 kg BP: RVIDd: 4.3 cm (< 3.3) IVSd: 1.2 cm (0.6 - 1.1) LVIDd: 4.5 cm (3.9 - 5.3) LVPWd: 1.6 cm (0.6 - 1.1) IVSs: 1.4 cm LVIDs: 2.9 cm LVPWs: 1.5 cm LAESV Index (A-L): 57.33 ml/m Ao Diam: 3.0 cm (2.0 - 3.7) AV Cusp: 1.9 cm (1.5 - 2.6) LA Diam: 4.5 cm (2.7 - 3.8) MV EXCURSION: 13.838 mm (> 18.000) MV EF SLOPE: 71 mm/s (70 - 150) EPSS: 0.7 cm MV E Ander: 1.32 m/s MV DecT: 297 ms MV A Ander: 1.06 m/s MV E/A Ratio: 1.25 RAP: 5.00 mmHg RVSP: 44.12 mmHg FINDINGS -------- Sinus rhythm. This was a technically difficult study with suboptimal apical views. The left ventricular size is normal. There is mild concentric left ventricular hypertrophy. Overa ll left ventricular systolic function is normal with, an EF between 55 - 60 %. The diastolic fillin g pattern is normal for the age of the patient 18.69. The right ventricle is moderate to severely enlarged. LA is severely dilated >40 ml/m2 The right atrium is mildly enlarged. 5.0mg of Lumason was utilized for enhancement of images Interatrial and interventricular septum intact. There is no evidence of aortic regurgitation. There is no evidence of aortic stenosis. Moderate mitral regurgitation is present. [id number] tricuspid regurgitation present. There is mild to moderate pulmonary hypertension. The right ventricular systolic pressure, as measured by Doppler, is 44.12mmHg. There is no pulmonic regurgitation present. The aortic root size is normal. IVC Not well visulized. Echo free space may represent effusion or a pericardial fat pad. There is no pericardial effusion. CONCLUSIONS -------- 1. The left ventricular size is normal. 2. There is mild concentric left ventricular hypertrophy. 3. Overall left ventricular systolic function is normal with, an EF between 55 - 60 %. 4. The diastolic filling pattern is normal for the age of the patient 18.69 5. The right ventricle is moderate to severely enlarged. 6. LA is severely dilated >40 ml/m2 7. The right atrium is mildly enlarged. 8. Moderate mitral regurgitation is present. 9. [id number] tricuspid regurgitation present. 10. There is mild to moderate pulmonary hypertension. 11. The right ventricular systolic pressure, as measured by Doppler, is 44.12mmHg. 12. Echo free space may represent effusion or a pericardial fat pad. EDGE ROLLER: Cinthya Gómez RDCS
[2021-06-14] MEDS: ASPIRIN 81 MG PO SCH (09:03)
[2021-06-14] MEDS: FERROUS SULFATE 325 MG TAB PO SCH (09:04)
[2021-06-14] MEDS: FOLIC ACID 1 MG TAB PO SCH (09:04)
[2021-06-14] MEDS: MICONAZOLE NITRATE 2% CREAM 14 GM TUBE TOPICAL SCH (09:06)
[2021-06-14] MEDS: DICLOFENAC SODIUM GEL 100 GM TUBE TOPICAL SCH ×2 (09:07→14:43)
--- NOTE | 2021-06-14 10:03 | P.PN ---
Subjective Progress Note Date: 06/14/21 Patient seen at bedside and she feels that she's doing about the same today compared to yesterday. She continues to have generalized pain throughout her body. She denies of any focal weakness. Objective - Vital Signs Vital signs: Vital Signs Temp 97.9 F 06/14/21 08:49 Pulse 56 L 06/14/21 08:49 Resp 20 06/14/21 08:49 BP 112/73 06/14/21 08:49 Pulse Ox 100 06/14/21 08:49 Intake & Output 06/13/21 06/14/21 06/14/21 18:59 06:59 18:59 Intake Total 1454 Output Total 610 Balance 1454 -610 Weight 64.864 kg 92.5 kg Intake: Intake, IV Titration 800 Amount Sodium Chloride 0.9% 1, 800 000 ml @ 100 mls/hr IV . Q10H KEON Rx#:[id number] Oral 654 Output: Urine 610 Other: Voiding Method External Catheter External Catheter # Voids 1 - Exam GENERAL: The patient is lying in bed and is in moderate to severe acute distress. She had generalized pain throughout the body. NEUROLOGICAL: Higher mental function: The patient is awake, alert, oriented to self, place and time. Patient is following commands. No aphasia and no neglect. Cranial nerves: The pupils are round, equal and reactive to light. Visual piña are full to confrontation throughout. Extraocular movement is intact no nystagmus is noted. Facial sensation is normal to touch throughout. The facial strength is normal throughout. Hearing is mildly to moderately decreased bilaterally to hand rub. Tongue is midline and moved [id number] without any difficulty. No dysarthria is noted. Motor: Gait is deferred because of her generalized pain. The strength is limited in assessing because of her pain. She is able to bend her elbows bilaterally at bed and squeeze hand symetrically without noticeable focality as well had antigravity of both ankles. Normal bulk. Could not assess tone because of her pain. Cerebellum: Could not assess because of her pain. Sensation: Sensation is normal to touch throughout. Reflexes (right/left): Refused because of her pain. Plantars are mute bilaterally. WORK-UP: CT of the head is reported as degenerative and nonspecific white matter changes most typical remote ischemia. Correlate with MRI as clinically warranted. I personally reviewed the CT of the head and I feel the patient had the subcortical over the right basal ganglia/frontal region seem old and not acute. 2-D echocardiogram is reported as mild concentric left ventricular hypertrophy. Ejection fraction of 55-60%. Left atrium is severely dilated. Moderate mitral regurgitation is present. Mild to moderate tricuspid regurgitation. - Labs CBC & Chem 7: 06/14/21 07:09 06/14/21 07:09 Labs: Abnormal Lab Results - Last 24 Hours (Table) 06/13/21 06/13/21 06/13/21 Range/Units 10:00 10:00 10:00 WBC 11.5 H (3.8-10.6) k/uL RBC 3.26 L (3.80-5.40) m/uL Hgb 10.3 L (11.4-16.0) gm/dL Hct 31.0 L (34.0-46.0) % MCV (80.0-100.0) fL MCHC (31.0-37.0) g/dL RDW 17.0 H (11.5-15.5) % Neutrophils # 10.1 H (1.3-7.7) k/uL Lymphocytes # 0.8 L (1.0-4.8) k/uL PT 45.9 H (9.0-12.0) sec INR 4.8 H (<1.2) Chloride 111 H (98-107) mmol/L Carbon Dioxide 21 L (22-30) mmol/L BUN 29 H (7-17) mg/dL Creatinine 1.18 H (0.52-1.04) mg/dL Glucose 132 H (74-99) mg/dL Calcium 8.2 L (8.4-10.2) mg/dL 06/14/21 06/14/21 06/14/21 Range/Units 07:09 07:09 07:09 WBC (3.8-10.6) k/uL RBC 3.30 L (3.80-5.40) m/uL Hgb 10.0 L (11.4-16.0) gm/dL Hct 33.6 L (34.0-46.0) % MCV 101.9 H D (80.0-100.0) fL MCHC 29.9 L (31.0-37.0) g/dL RDW 16.8 H (11.5-15.5) % Neutrophils # (1.3-7.7) k/uL Lymphocytes # 0.9 L (1.0-4.8) k/uL PT 57.9 H (9.0-12.0) sec INR 6.0 H* (<1.2) Chloride 114 H (98-107) mmol/L Carbon Dioxide 19 L (22-30) mmol/L BUN 24 H (7-17) mg/dL Creatinine (0.52-1.04) mg/dL Glucose 73 L (74-99) mg/dL Calcium (8.4-10.2) mg/dL Microbiology - Last 24 Hours (Table) 06/12/21 23:56 Blood Culture - Preliminary Blood No Growth after 24 hours 06/12/21 23:56 Blood Culture - Preliminary Blood No Growth after 24 hours Assessment and Plan Assessment: * Transient altered mental status likely due to septic encephalopathy of unknown but possibly seems to be due to possible pneumonia (low grade fever, leukocytosis, hypotensive, hypoxia and possible changes on CXR) and small component of metabolic encephalopathy--mentation improved * Moderate to severe Generalized pain due to her Rheumatoid Arthritis flare-up. * History of stroke with residual weakness over the right side in the past one to few months ago (she was at [facility] (possibly [place]) for her stroke). * Possible pneumonia she presented with shortness of breath and hypoxia per the ED at the outside facility) * Kidney insufficiency that is trending down and not sure if patient has acute or chronic kidney insufficiency * Atrial fibrillation on Coumadin with supratherapeutic INR currently is 6.0. * History of COVID-19 Pneumonia * Hypothyroidism * Rheumatoid arthritis Plan: * Exam is limited because of her diffuse pain. * From a neurological perspective , the INR goal to be between 2-3 but will defer that management to the primary team. She is also in addition she is on aspirin 81 at her home dose. Continue Lipitor 20 mg daily at bedtime. * She is currently on folic acid 1 mg, vitamin B12 1000 g daily. * An EEG is not warranted at this time. Her transient episode of confusion seems more septic encephalopathy. * Continue neuro checks * Patient is currently on ceftriaxone and we'll defer the antibiotic management to the primary team. * Please avoid any hypotensive episode and we'll defer the management to the [facility] team. * We'll defer the rheumatoid arthritis management to the primary team. * We'll defer the rest of the medical management to the primary team. * Upon discharge the patient needs to follow-up with a neurologist within 2-3 weeks as an outpatient. The plan is discussed with the patient and her nurse. Nicolas Stearns M.D. Neuro-hospitalist Time with Patient: Less than 30
--- NOTE | 2021-06-14 10:07 | P.DS ---
Providers Date of admission: 06/13/21 07:12 Expected date of discharge: 06/14/21 Attending physician: Benito Cruz Consults: 06/13/21 12:35 Consult Physician Routine Consulting Provider: Nicolas Stearns Consult Reason/Comments: poss stroke Do you want consulting provider notified?: Yes Primary care physician: Karthikeyan Armendariz [facility] Course: Chief Complaint: Acute confusion This is a pleasant [address] Karthikeyan Armendariz. Chronic stable medical conditions include GERD, hypertension, rheumatoid arthritis, hypothyroid, recent stroke with some right-sided weakness. Patient's currently at [facility]. She was noted yesterday be a bit confused she was sent in here. Patient states he feels weak all over. Also joints are hurting. She says she is weak on the right side but he was more weak yesterday. No change in his speech. She is currently not working. This morning she knows where she is. Denies any respiratory or urinary symptoms. I did order a computed tomography scan of the brain and neuro consult because of the unclear history. She also states it's painful to move her limbs. Per the EMS patient was noted to be weak and lethargic and confused. Hypotensive. [place] to have pneumonia. Put on IV ceftriaxone. She also had flareup of her arthritis. Put on naproxen. Delirium. Computed tomography scan of the brain did not show anything acute June 14: Feeling much better. Placed on naproxen for arthritis. No fever. White count is down. Patient was seen by neurology. Care was discussed with the patient. Return to the [facility]. Discussion and discharge planning more than 35 minutes Consultation: Dr. Stearns from neurology Past medical history to include: Atrial fibrillation, asthma, stroke, GERD, hypertension, rheumatoid arthritis, hypothyroid, anemia, recent stroke with right-sided weakness Social history: Currently for rehab at [facility], the smoke in the past. For about 30 years. Stopped over 20 years ago. Family history: Reviewed, noncontributory to presentation Physical examination: VITAL SIGNS: Afebrile, 56, 20, 112.73, 100% on 2 L GENERAL: BMI 25.3, reclining in bed, awake, comfortable EYES: Pupils equal. Conjunctiva normal. NECK: JVD not raised; masses not palpable. HEART: First and second heart sounds are normal; no edema. LUNGS: Respiratory rate normal; clear to auscultation. ABDOMEN: Soft, nontender, liver spleen not palpable, no masses palpable. PSYCH: Patient knows that she is in the hospital, knows the month and the year. Able to answer questions. MUSCULAR skeletal: Patient seems to have pain in different joints especially the upper extremity. Even folding her arms.l. NEUROLOGICAL: [Cranial nerves grossly intact; no facial asymmetry, some decrease in part on the right side. Unable to assess because of pain. INVESTIGATIONS, reviewed in the clinical context: June 14: WBC 6.6 hemoglobin 10 platelets 162 INR 6.0 potassium 4.5 creatinine 0.83 2-D echocardiogram: Moderate MR, [id number] TR, EF 55-60% White count 12.5 hemoglobin 10.9 platelets 189 INR 4.2 potassium 4 when necessary 32 creatinine 1.21 Troponin I 0.037, 0.038 UA positive for trace leukoesterase, trace bacteria Coronavirus [PCR]: Not detected EKG tracing personally reviewed by me-normal sinus rhythm, PVC, some nonspecific T-wave changes Chest x-ray film personally reviewed by me-infiltrates in the upper zones. Bilateral coarse Assessment and plan: - pneumonia. Suspect gram-negative organism IV ceftriaxone. Being changed to Ceftin 5 mg by mouth twice a day for 5 days -Acute delirium from pneumonia on presentation. Improved -Stroke ruled out Seen by neurology -Paroxysmal atrial fibrillation, currently in sinus rhythm Coumadin -Coumadin toxicity with no bleeding Vitamin K 2.5 mg by mouth 1. Decreased dose of Coumadin to 3 mg daily at bedtime -Hyperlipidemia Lipitor 20 mg daily at bedtime -Hypothyroid Synthroid 50 g daily -Essential hypertension Lisinopril 10 mg daily -Acute on Chronic arthralgia. Diagnosis unclear. Use Voltaren gel. Naproxen 250 mg 3 times a day for 7 days -Chronic medical debility. Patient has been nonambulatory of recent. Fall precautions -Troponin leak due to hemodynamic a mismatch. No clinical evidence of ACS Disposition: [facility] Labs: CBC, BMP, INR: 2 days Plan - Discharge Summary Discharge Rx Participant: No New Discharge Prescriptions: New Diclofenac Sodium Gel [Voltaren Gel] 2 gm TOPICAL QID gm Cefuroxime Axetil [Ceftin] 500 mg PO BID #10 tab Naproxen [Naprosyn] 250 mg PO TID #21 tab Continue Miconazole 2% Cream [Monistat-Derm] 1 applic TOPICAL BID Cyanocobalamin (Vitamin B-12) [Vitamin B-12] 1,000 mcg PO DAILY metHOTREXate sodium [Methotrexate] 2.5 mg PO FR Levothyroxine Sodium [Synthroid] 50 mcg PO DAILY@0600 Atorvastatin [Lipitor] 20 mg PO HS Gabapentin [Neurontin] 400 mg PO TID@0600,1400,2200 #12 cap Calcium Carb-Vit D 500Mg-5Mcg [Oscal 500+D 5 Mcg (200 Iu)] 1 tab PO DAILY Polyethylene Glycol 3350 [Miralax] 17 gm PO DAILY Lisinopril [Zestril] 10 mg PO DAILY Folic Acid 1 mg PO DAILY Ferrous Sulfate [Iron (65 MG Elemental)] 325 mg PO DAILY Aspirin 81 mg PO DAILY Acetaminophen [Tylenol Arthritis] 650 mg PO Q6H PRN PRN Reason: Pain Changed Warfarin Sodium 3 mg PO HS #0 Discontinued Docusate [Colace] 100 mg PO HS@2000 Discharge Medication List Acetaminophen [Tylenol Arthritis] 650 mg PO Q6H PRN 06/13/21 [History] Aspirin 81 mg PO DAILY 06/13/21 [History] Atorvastatin [Lipitor] 20 mg PO HS 06/13/21 [History] Calcium Carb-Vit D 500Mg-5Mcg [Oscal 500+D 5 Mcg (200 Iu)] 1 tab PO DAILY 06/13/21 [History] Cyanocobalamin (Vitamin B-12) [Vitamin B-12] 1,000 mcg PO DAILY 06/13/21 [History] Ferrous Sulfate [Iron (65 MG Elemental)] 325 mg PO DAILY 06/13/21 [History] Folic Acid 1 mg PO DAILY 06/13/21 [History] Levothyroxine Sodium [Synthroid] 50 mcg PO DAILY@0600 06/13/21 [History] Lisinopril [Zestril] 10 mg PO DAILY 06/13/21 [History] Miconazole 2% Cream [Monistat-Derm] 1 applic TOPICAL BID 06/13/21 [History] Polyethylene Glycol 3350 [Miralax] 17 gm PO DAILY 06/13/21 [History] metHOTREXate sodium [Methotrexate] 2.5 mg PO FR 06/13/21 [History] Cefuroxime Axetil [Ceftin] 500 mg PO BID #10 tab 06/14/21 [Rx] Diclofenac Sodium Gel [Voltaren Gel] 2 gm TOPICAL QID gm 06/14/21 [Rx] Gabapentin [Neurontin] 400 mg PO TID@0600,1400,2200 #12 cap 06/14/21 [Rx] Naproxen [Naprosyn] 250 mg PO TID #21 tab 06/14/21 [Rx] Warfarin Sodium 3 mg PO HS #0 06/14/21 [Rx] Follow up Appointment(s)/Referral(s): Karthikeyan Armendariz MD [Primary Care Provider] - 1-2 days
[2021-06-14 12:00] VITALS: BP 141/83; TEMP 97.6
[2021-06-15] MEDS ORDERED: metHOTREXate sodium 2.5 MG TAB PO SCH (09:00)
--- NOTE | 2021-06-19 06:48 | CDI ---
Documentation Clarification Form Date: 06/19/2021 06:20:00 AM From: Valerie Rivera Admit Date: 06/13/2021 07:12:00 AM Patient Name: Nu Garcia Visit Number: [id number] Discharge Date: 06/14/2021 03:40:00 PM ATTENTION: The Clinical Documentation Specialists (CDI) and [facility] Coding Staff appreciate your assistance in clarifying documentation. Please respond to the clarification below the line at the bottom and electronically sign. The CDI & [facility] Coding staff will review the response and follow-up if needed. Please note: Queries are made part of the Legal Health Record. If you have any questions, please contact the author of this message via ITS. Dr. Benito Cruz The patient presented AMS and thought to be due to sepsis per ED note. Per Neurology consult and PN's "Transient AMS likely due to septic encephalopathy due to possible pneumonia, documented as possible Gram negative pneumonia per DCS. The diagnosis of sepsis is not carried to the DCS. Please clarify if patient had sepsis or was it ruled out. History/Risk Factors: possible gram negative pneumonia and encephalpathy Clinical Indicators: WBC: 12.5 Lactic acid: 2.0 Blood cultures: No growth Vitals signs: 100.6 F, 76 bpm, 107/55, 94% RA Treatment: IV Ceftriaxone changed to oral Ceftin In your professional opinion, please clarify if patient had sepsis or was it ruled out. [ ] Sepsis POA [ ] Sepsis, Not POA [ ] Sepsis ruled out [ ] Other, please specify [ ] Unable to determine SIRS Criteria: 2 or more of the following may indicate SIRS -Temperature < 96.8F (36C) or > 101.0F (38.3C) -Heart Rate > 90 bpm -Respiratory Rate > 20 breaths/min or PaCO2 < 32 mmHg -White Blood Cell Count > 12,000 or < 4,000 cells/mm3 or > 10% bands sepsis,pos_ MTDD
== END 2021-06-14 15:40 | disposition home or self-care (01) | DRG 871 ==
LOC: EC 23:41 → 3SCARD 06-13 07:12
PROVIDERS: ADMIT Hospitalist; ATTEND Hospitalist
DX: A41.50 Gram-negative sepsis, unspecified (principal); J15.6 Pneumonia due to other Gram-negative bacteria; G93.41 Metabolic encephalopathy; I69.351 Hemiplegia and hemiparesis following cerebral infarction affecting right dominant side; I24.8 Other forms of acute ischemic heart disease; E03.9 Hypothyroidism, unspecified; E78.5 Hyperlipidemia, unspecified; I10 Essential (primary) hypertension; I48.0 Paroxysmal atrial fibrillation; J45.909 Unspecified asthma, uncomplicated; J84.10 Pulmonary fibrosis, unspecified; K21.9 Gastro-esophageal reflux disease without esophagitis; M06.9 Rheumatoid arthritis, unspecified; R53.81 Other malaise; D64.9 Anemia, unspecified; M19.90 Unspecified osteoarthritis, unspecified site; I95.9 Hypotension, unspecified; N28.9 Disorder of kidney and ureter, unspecified; T45.515A Adverse effect of anticoagulants, initial encounter; I08.1 Rheumatic disorders of both mitral and tricuspid valves; R65.20 Severe sepsis without septic shock; Z20.822 Contact with and (suspected) exposure to COVID-19; Z86.16 Personal history of COVID-19; Z87.01 Personal history of pneumonia (recurrent); Z79.01 Long term (current) use of anticoagulants; Z79.82 Long term (current) use of aspirin; Z79.890 Hormone replacement therapy; Z79.899 Other long term (current) drug therapy; Z87.891 Personal history of nicotine dependence; Z90.710 Acquired absence of both cervix and uterus; Z88.5 Allergy status to narcotic agent
CPT/HCPCS: 36415; 70450; 71045; 80048; 80053; 81001; 83605; 84145; 84484; 85025; 85610; 85730; 87040; 87635; 93005; 93306; 94760; 96361; 96365; 96375; 99285